=== PATIENT | female | born 1955 | race African-American/Black ===

== ENCOUNTER 2016-08-22 15:36 | Day surgery (SDC) | payer OTHER ==
[~2016-08-22] VITALS: Ht 167.6 cm; Wt 109.8 kg
[~2016-08-22 15:36] MED LIST: ACET-1145 PO; CLIN-73 PO; LISI10TA2 PO; METF500T4 PO; SERT-165 PO; SIMV5TAB50 PO; TRAZ100T15 PO
[2016-08-22 16:07] VITALS: Ht 167.6 cm; Wt 109.8 kg
[2016-08-22] MEDS ORDERED: SERT25TA PO (16:17)
[2016-08-22] MEDS ORDERED: PROPOFOL 20 ML ONE (17:01)
[2016-08-22] MEDS ORDERED: MIDAZOLAM 1 MG/ML 2 ML INJ ONE ×2 (17:01→17:27)
[2016-08-22] MEDS ORDERED: FENTAnyl 50 MCG/ML VIAL ONE ×2 (17:01→17:27)
[2016-08-22 17:06] VITALS: BP 130/58; PULSE 80; RESP 15
[2016-08-22 17:19] VITALS: BP 97/63; PULSE 84; RESP 20
[2016-08-22 17:56] VITALS: BP 92/53; PULSE 85; RESP 20
--- NOTE | 2016-08-22 21:40 | GILP ---
DATE OF PROCEDURE: NAME OF PROCEDURE: Colonoscopy. SURGEON: Sal Davis MD PREOPERATIVE DIAGNOSIS: Screening colonoscopy. POSTOPERATIVE DIAGNOSES: 1. Colonoscopy all the way to the cecum. Poor prep making the exam somewhat suboptimal. 2. Diverticulosis of the colon. 3. Internal hemorrhoids. 4. No gross neoplasm was identified. INDICATION FOR THE PROCEDURE: Ms. Ellen Leiva is a 61-year-old female patient who was scheduled for screening colonoscopy. The procedure and possible complications were well explained to the patient. She understood and con sented to the procedure. DESCRIPTION OF PROCEDURE: Under the influence of anesthesia, the colonoscope was carefully introduc ed in the rectum and, under direct vision, it was advanced all the way to the cecum. FINDINGS: The patient had poor prep making the exam somewhat suboptimal. The patient was noted to have diverticulosis of the colon. She had internal hemorrhoids. No colon neoplasm was identified. She tolerated the procedure very well and there was no complication from the procedure. At the end of the procedure, she was awake with stable vital signs and she was discharged home to the care of h er family. IMPRESSION: 1. Colonoscopy all the way to the cecum. Poor prep making the exam somewhat suboptimal. 2. Diverticulosis of the colon. 3. Internal hemorrhoids. 4. No gross neoplasm was identified. PLAN: Because of the suboptimal nature of the exam secondary to the poor prep, would recommend repe at colonoscopy in 3 years. Dictated By: SAL BLOUNT/YOLANDA Conf#: [id number] DID#: [id number] CC: SAL DAVIS MD;*EndCC*
== END 2016-08-22 18:51 | disposition home or self-care (01) ==
LOC: SDS 15:36 → GIL 15:37 → SDS 18:51
PROVIDERS: ATTEND Internal Medicine Gastroenterology
DX: Z12.11 Encounter for screening for malignant neoplasm of colon (principal); K57.90 Diverticulosis of intestine, part unspecified, without perforation or abscess without bleeding; K64.8 Other hemorrhoids; E11.9 Type 2 diabetes mellitus without complications; E78.5 Hyperlipidemia, unspecified; E66.01 Morbid (severe) obesity due to excess calories; Z68.39 Body mass index [BMI] 39.0-39.9, adult
CPT/HCPCS: 45378; 82962; J2250; J3010; Z7610

== ENCOUNTER 2016-12-17 08:47 | Emergency (ER) | payer OTHER ==
[~2016-12-17] VITALS: Ht 167.6 cm; Wt 113.6 kg
[~2016-12-17 08:47] MED LIST changes: -ACET-1145 PO; -CLIN-73 PO; -SERT-165 PO; +SERT25TA PO
[2016-12-17 08:51] VITALS: Ht 167.6 cm; Wt 113.6 kg
--- NOTE | 2016-12-17 09:35 | ERD ---
ER Documentation Chief Complaint Date/Time DATE: 12/17/16 TIME: 09:33 Chief Complaint for chest x ray HPI This a 61 year-old female who presents to the emergency department today for a preoperative chest x-ray. Patient states that she was sent here by her doctor to the emergency room to get a chest x-ray. Patient indicated that she is having surgery on December 20 for a right foot ganglion cyst by Dr. Jackson. Denies any complaints at this time ROS All systems reviewed and are negative except as per history of present illness. Medications Home Meds Active Scripts Trazodone Hcl* (Desyrel*) 100 Mg Tab, 50 MG PO QHS Y for INSOMNIA, #1 TAB Prov:GWENDOLYN JOSE MD 10/31/15 Reported Medications Sertraline Hcl* (Zoloft*) 25 Mg Tablet, 25 MG PO DAILY, #30 TAB 08/22/16 Lisinopril* (Lisinopril*) 10 Mg Tablet, 10 MG PO DAILY, #60 10/27/15 Metformin* (Glucophage*) 500 Mg Tab, 500 MG PO BID WITH MEALS, #60 10/27/15 Simvastatin* (Simvastatin*) 5 Mg Tablet, 5 MG PO QHS, #30 10/27/15 Allergies Allergies: Coded Allergies: aspirin (Verified Allergy, Intermediate, 08/22/16) NAUSEA/VOMITING PMhx/Soc History of Surgery: Yes (HYST, SX ON BUTTOCK R, R HAND ) Anesthesia Reaction: No Hx Neurological Disorder: No Hx Respiratory Disorders: No Hx Cardiac Disorders: Yes (HTN. HIGH CHOL) Hx Psychiatric Problems: No Hx Miscellaneous Medical Probl: No Hx Alcohol Use: Yes (OCCASIONALLY) Hx Substance Use: No Hx Tobacco Use: No Smoking Status: Never smoker Physical Exam Vitals Vital Signs Date Time Temp Pulse Resp B/P Pulse Ox O2 Delivery O2 Flow Rate FiO2 12/17/16 08:51 98.5 78 16 120/72 99 Physical Exam Const: No acute distress Head: Atraumatic Eyes: Normal Conjunctiva ENT: Normal External Ears, Nose and Mouth. Neck: Full range of motion..~ No meningismus. Resp: Clear to auscultation bilaterally Cardio: Regular rate and rhythm, no murmurs Abd: Soft, non tender, non distended. Normal bowel sounds Skin: No petechiae or rashes Ext: No cyanosis, or edema Neur: Awake and alert Psych: Normal Mood and Affect Results 24 hrs DIAGNOSTIC IMAGING REPORT Patient: YESSI WASHINGTON : 1955 Age: 61 Sex: F [id number] DOS: 12/17/16 0000 Ordering MD: REINALDO RICHARDS PA-C Location: [facility] Room/Bed: PROCEDURE: XR Chest. CLINICAL INDICATION: pre-op chest x ray TECHNIQUE: PA and Lateral views of the chest were obtained. COMPARISON: None. FINDINGS: The soft tissues are normal. There is a mild dextrocurvature of the lower thoracic spine. There are small osteophytes in the thoracic spine. The heart is mildly enlarged. The cardiomediastinal silhouette and hilar structures are normal. The pulmonary vasculature is normal. There is a left-sided aorta. The right heart border is poorly defined. It is unclear if this is result of an epicardial fat pad or right middle lobe atelectasis. A lateral view will help in evaluation. The costophrenic angles are normal. IMPRESSION: 1. Silhouetting of the right heart border may be the result of right middle lobe atelectasis or an epicardial fat pad. A lateral view would be helpful in evaluation. 2. Mild cardiomegaly. RPTAT:AAJJ Physician Arianne Date Time Electronically viewed and signed by Saravanan Blum Physician on 12/17/2016 09:47 JM/ CC: REINALDO RICHARDS PA-C Procedures/[facility] This a 61-year-old female who presents the emergency department today for a preoperative chest x-ray. Patient states that she was sent here by her primary care clinic [facility] for a preop chest x-ray. Patient indicated she is having surgery on December 20 for a right foot ganglion cyst by Dr. Easley. I explained to the patient that I did do a chest x-ray for her but that she could also get this done as an outpatient. Patient indicated that she was sent here to the emergency room by the doctor. Chest x-ray was obtained that showed mild extra curvature of the lower spine. There are small osteophytes in thoracic spine. The heart is mildly enlarged. The cardiomediastinal silhouette and hilar structures are normal. Pulmonary vasculature is normal. There is a left-sided aorta. The right heart border is poorly defined. It is unclear if this is a result of epicardial fat pad or right middle lobe atelectasis. There is no evidence of pneumonia. Patient is afebrile and otherwise well-appearing. Her vital signs are stable. She has no cough or chest pain and patient has no complaints at this time and chest x-ray results were given to the patient. At this time the patient is stable for discharge and outpatient management. Patient should follow up with their PCP in the next 1-2 days. They may return to the emergency department sooner for any persistent or worsening of symptoms. Patient understood and agreed with the plan. Departure Diagnosis: Primary Impression: Encounter for routine chest x-ray Condition: REINALDO Salazar PA-C December 17, 2016 09:35
--- NOTE | 2016-12-17 09:47 | RADRPT ---
PROCEDURE: XR Chest. CLINICAL INDICATION: pre-op chest x ray TECHNIQUE: PA and Lateral views of the chest were obtained. COMPARISON: None. FINDINGS: The soft tissues are normal. There is a mild dextrocurvature of the lower thoracic spine. There ar e small osteophytes in the thoracic spine. The heart is mildly enlarged. The cardiomediastinal hellen houette and hilar structures are normal. The pulmonary vasculature is normal. There is a left-sided aorta. The right heart border is poorly defined. It is unclear if this is result of an epicardial f at pad or right middle lobe atelectasis. A lateral view will help in evaluation. The costophrenic angles are normal. IMPRESSION: 1. Silhouetting of the right heart border may be the result of right middle lobe atelectasis or an e picardial fat pad. A lateral view would be helpful in evaluation. 2. Mild cardiomegaly. RPTAT:AAJJ Physician Arianne Date Time Electronically viewed and signed by Physician Arianne on 12/17/2016 09:47 GEMMA/
== END 2016-12-17 09:59 | disposition home or self-care (01) ==
LOC: FTE 08:47
DX: Z01.811 Encounter for preprocedural respiratory examination (principal); I10 Essential (primary) hypertension
CPT/HCPCS: 71010; Z7502

== ENCOUNTER 2016-12-20 09:51 | Day surgery (SDC) | payer OTHER ==
[2016-12-19 15:18] VITALS: BMI 40.4
[~2016-12-20] VITALS: Ht 167.6 cm; Wt 113.4 kg
[2016-12-20] MEDS ORDERED: ALLO100T PO (10:20)
[2016-12-20] MEDS ORDERED: CHLO25TA13 PO (10:21)
[2016-12-20] MEDS ORDERED: FLUT9.9S NASAL (10:22)
[2016-12-20] MEDS ORDERED: LISI20TA11 PO (10:22)
[2016-12-20] MEDS ORDERED: IBUP-1542 PO (10:23)
[2016-12-20] MEDS ORDERED: RANI150T5 PO (10:23)
[2016-12-20] MEDS ORDERED: SERT-165 PO (10:24)
[2016-12-20] MEDS ORDERED: TRAM-40 PO (10:26)
[2016-12-20 10:55] VITALS: BP 132/74; PULSE 67; RESP 16; Ht 167.6 cm; Wt 113.4 kg
[2016-12-20] MEDS ORDERED: FENTAnyl 50 MCG/ML VIAL ONE (11:39)
[2016-12-20] MEDS ORDERED: CEFAZOLIN 1 GM INJ ONE (11:39)
[2016-12-20] MEDS ORDERED: ROCURONIUM 50 MG INJ ONE (11:39)
[2016-12-20] MEDS ORDERED: GLYCOPYRROLATE 0.4 MG INJ ONE (11:39)
[2016-12-20] MEDS ORDERED: LIDOCAINE 2% (SDV) 5 ML INJ ONE (11:39)
[2016-12-20] MEDS ORDERED: PROPOFOL 20 ML ONE (11:39)
[2016-12-20] MEDS ORDERED: NEOSTIGMINE 3 MG/3 ML SYRINGE ONE (11:39)
[2016-12-20] MEDS ORDERED: MIDAZOLAM 1 MG/ML 2 ML INJ ONE (11:39)
[2016-12-20] MEDS ORDERED: LIDOCAINE 1% (MPF) 30 ML INJ ONE (12:21)
[2016-12-20] MEDS ORDERED: BUPIVACAINE 0.5% (SDV) 30 ML INJ ONE (12:21)
--- NOTE | 2016-12-20 12:36 | HPN ---
Date/Time of Note Date/Time of Note DATE: 12/20/16 TIME: 12:36 Interval H&P Admission Note Pt. seen H&P reviewed: No system changes RUTHY CASTRO DPM December 20, 2016 12:36
[2016-12-20] MEDS ORDERED: LIDOCAINE 1% (MPF) 30 ML INJ INJ ONE (12:52)
[2016-12-20] MEDS ORDERED: BUPIVACAINE 0.5% (SDV) 30 ML INJ INJ ONE (12:52)
[2016-12-20] MEDS ORDERED: DEXAMETHASONE 4 MG/ML 1 ML INJ ONE (13:04)
[2016-12-20] MEDS ORDERED: LIDOCAINE 4% CR ONE (13:23)
[2016-12-20] MEDS ORDERED: DEXAMETHASONE 4 MG/ML 1 ML INJ IV ONE (13:24)
[2016-12-20 13:39] VITALS: BP 139/70; PULSE 71; RESP 18
[2016-12-20] MEDS ORDERED: HYDROmorphONE (0.2 MG/ML) 10ML SYG IV ONE (13:42)
[2016-12-20] MEDS ORDERED: ONDANSETRON 4 MG INJ ONE (13:42)
[2016-12-20 13:48] VITALS: BP 151/81; PULSE 71; RESP 19
[2016-12-20] MEDS: HYDROmorphONE (0.2 MG/ML) 10ML SYG IV PRN ×2 (13:51→13:57)
[2016-12-20] MEDS ORDERED: ONDANSETRON 4 MG INJ IV PRN (14:00)
[2016-12-20] MEDS ORDERED: OXYCODONE/ACETAMINOPHEN (5/325) TAB PO PRN ×2 (14:00)
[2016-12-20] MEDS ORDERED: FENTAnyl 50 MCG/ML VIAL IV PRN ×2 (14:00)
[2016-12-20] MEDS ORDERED: EPHEDrine SULFATE 50 MG/5 ML SYG IV PRN (14:00)
[2016-12-20] MEDS ORDERED: morphine (1 MG/ML) 10ML SYRINGE IV PRN ×3 (14:00)
[2016-12-20] MEDS ORDERED: HYDROmorphONE (0.2 MG/ML) 10ML SYG IV PRN ×2 (14:00)
[2016-12-20] MEDS ORDERED: LABETALOL HCL 20MG INJ IV PRN (14:00)
[2016-12-20] MEDS ORDERED: hydrALAzine 20 MG INJ IV PRN (14:00)
[2016-12-20] MEDS ORDERED: MIDAZOLAM 1 MG/ML 2 ML INJ IV PRN (14:00)
[2016-12-20] MEDS ORDERED: DIPHENHYDRAMINE 50 MG INJ IV PRN (14:00)
[2016-12-20] MEDS ORDERED: MEPERIDINE 25 MG INJ IV PRN (14:00)
[2016-12-20] MEDS ORDERED: ATROPINE 1 MG/10 ML SYRINGE IV PRN (14:00)
[2016-12-20] MEDS ORDERED: METOCLOPRAMIDE 10 MG INJ ONE (14:05)
[2016-12-20 14:08] VITALS: BP 147/77; PULSE 72; RESP 28
[2016-12-20 14:28] VITALS: BP 119/72; PULSE 70; RESP 39
[2016-12-20] MEDS ORDERED: METOCLOPRAMIDE 10 MG INJ IV PRN (14:30)
[2016-12-20] MEDS ORDERED: HYDROCODONE/APAP (5/325) TAB PO PRN (14:30)
[2016-12-20 16:41] VITALS: BP 140/68; PULSE 68; RESP 18
--- NOTE | 2016-12-21 01:49 | OPR ---
DATE OF OPERATION: 12/20/2016 SURGEON: Ayesha Easley DPM ANESTHESIOLOGIST: Dr. Mojica ANESTHESIA: Local with IV sedation. PREOPERATIVE DIAGNOSIS: Painful ganglion cyst, right foot. POSTOPERATIVE DIAGNOSIS: Painful ganglion cyst, right foot. PROCEDURE PERFORMED: Excision of ganglion cyst, right foot. DESCRIPTION OF PROCEDURE: The patient was brought into the operating room, placed on the table in a secure supine position. Cardiac monitoring, IV sedation and an ankle pneumatic tourniquet were uti lized for this case. Preoperatively, a total of 9 mL of 0.5% Marcaine plain mixed with 2% lidocaine plain were infiltrated into the dorsal right foot in the form of a local block. Upon achieving ane sthesia, the right foot and leg were prepped and draped in the usual sterile manner, and the ankle p neumatic tourniquet was then inflated to 250 mmHg. Procedure #1 was then performed, excision of karyna glion cyst, right foot. A 2 cm incision was placed over the soft tissue mass, over the dorsal later al aspect of the right foot. The incision was deepened. Superficial bleeders were cauterized and b ovied as necessary. The gelatinous fluid sac was noted. The fluid was evacuated and the stalk of t he cystic mass was sutured with 3-0 and 4-0 Vicryl simple interrupted sutures. Subcutaneous tissue was closed with 4-0 Vicryl simple interrupted sutures and the skin edges were reapproximated with a running 3-0 Prolene subcuticular stitch. Dressing consisted of tincture of benzoin, 1/4-inch Steri- Strips, Xeroform gauze, 4 x 4 gauze, 4-inch Kerlix roll and 2 inch Coban into a semi-compressive pedro ssing. Immediate hyperemia was noted to all digits of the right foot upon deflating the ankle tourn iquet. No intraoperative complications were encountered. Patient tolerated the above procedure wel l. She left the OR with vital signs stable and satisfactory. Patient will follow up 1 week postop. Dictated By: AYESHA YOST/YOLANDA Conf#: [id number] DID#: [id number]
== END 2016-12-20 15:40 | disposition home or self-care (01) ==
LOC: SDS 09:51
PROVIDERS: ATTEND Podiatrist Primary Podiatric Medicine
DX: M67.431 Ganglion, right wrist (principal); E11.9 Type 2 diabetes mellitus without complications; I10 Essential (primary) hypertension; E66.01 Morbid (severe) obesity due to excess calories; Z68.41 Body mass index [BMI] 40.0-44.9, adult
CPT/HCPCS: 25111; 82962; J0690; J1100; J1170; J2175; J2250; J2405; J2710; J2765; J3010; Z7512; Z7610